=== PATIENT | male | born 1995 | race Hispanic/Latino ===

== ENCOUNTER 2021-05-28 01:58 | Emergency (ER) | payer MEDICARE ==
[2021-05-28 02:26] VITALS: BP 144/90
[2021-05-28] MEDS ORDERED: predniSONE 20 MG TAB PO ONE (05:03)
[2021-05-28] MEDS ORDERED: diphenhydrAMINE 25 MG CAP PO ONE (05:03)
--- NOTE | 2021-05-28 06:11 | Emergency Department Report ---
ED Allergic Reaction HPI - General Chief complaint: Allergic Reaction Stated complaint: Allergic Reaction Source: patient, EMS Mode of arrival: Stretcher Limitations: No Limitations - History of Present Illness Initial Comments: Patient is a 25-year-old male with no past medical history and who appears to be homeless presented to the ED with complaint of acute onset p ersistent itchy mild erythematous maculopapular rashes on the ankles bilaterally for the last 12 hours. Patient states that the itching has been constant and persistent although he admits that he has not taken any medication. Patient stated that he suspect that he may have been bitten by an unknown insect. Patient denies dizziness, syncope, chest pain, shortness of breath, swollen lips or tongue, dysphagia, dysphonia, nausea and vomiting or diarrhea, abdominal pain, cough or wheezing, traumatic injury, fever and chills. MD Complaint: allergic reaction, hives, other (itching rashes on ankles bilaterally) -: Sudden, hour(s) (8) Exposure: unknown Symptoms: rash, itching. denies: facial swelling, lip swelling, difficulty swallowing, difficulty breathing, orolingual swelling, hoarseness, syncopy, dizziness, nausea, vomiting, other Severity: mild Treatment Prior to Arrival: none Previous Allergy History: none - Related Data Allergies Allergy/AdvReac Type Severity Reaction Status Date / Time No Known Allergies Allergy Unverified 05/28/21 02:25 ED Review of Systems ROS: Stated complaint: Allergic Reaction Other details as noted in HPI Constitutional: denies: chills, fever Eyes: denies: eye pain, eye discharge, vision change ENT: denies: ear pain, throat pain Respiratory: denies: cough, shortness of breath, wheezing Cardiovascular: denies: chest pain, palpitations Endocrine: no symptoms reported Gastrointestinal: denies: abdominal pain, nausea, vomiting, diarrhea Genitourinary: denies: urgency, dysuria Musculoskeletal: denies: back pain, joint swelling, arthralgia Skin: rash (itchy erythematous maculopapular rash on bilateral ankles), change in color, pruritus. denies: lesions Neurological: denies: headache, weakness, paresthesias Psychiatric: denies: anxiety, depression Hematological/Lymphatic: denies: easy bleeding, easy bruising ED Past Medical Hx - Past Medical History Previous Medical History?: No - Surgical History Past Surgical History?: No - Social History Smoking Status: Current Every Day Smoker Substance Use Type: Marijuana ED Physical Exam - General Limitations: No Limitations General appearance: alert, in no apparent distress - Head Head exam: Present: atraumatic, normocephalic, normal inspection - Eye Eye exam: Present: normal appearance, PERRL, EOMI Pupils: Present: normal accommodation - ENT ENT exam: Present: normal exam, normal orophraynx, mucous membranes moist, TM's normal bilaterally, normal external ear exam - Neck Neck exam: Present: normal inspection, full ROM - Respiratory Respiratory exam: Present: normal lung sounds bilaterally. Absent: respiratory distress, wheezes, rales, rhonchi, chest wall tenderness, accessory muscle use, prolonged expiratory, other - Cardiovascular Cardiovascular Exam: Present: regular rate, normal rhythm, normal heart sounds. Absent: systolic murmur, diastolic murmur, rubs, gallop - GI/Abdominal GI/Abdominal exam: Present: soft, normal bowel sounds. Absent: distended, tenderness, guarding, rebound, hyperactive bowel sounds, hypoactive bowel sounds, organomegaly, mass, bruit - Extremities Exam Extremities exam: Present: normal inspection, full ROM, normal capillary refill - Back Exam Back exam: Present: normal inspection, full ROM. Absent: tenderness, CVA tenderness (R), CVA tenderness (L), muscle spasm, paraspinal tenderness, vertebral tenderness - Neurological Exam Neurological exam: Present: alert, oriented X3, CN II-XII intact, normal gait, reflexes normal - Psychiatric Psychiatric exam: Present: normal affect, normal mood, anxious - Skin Skin exam: Present: warm, dry, intact, rash (itchy erythematous maculopapular rashes on bilateral ankles), erythema, urticaria ED Course Vital Signs 05/28/21 02:16 Temperature 98 F Pulse Rate 100 H Blood Pressure 144/90 ED Medical Decision Making - Medical Decision Making This is a 25-year-old male with no past medical history and who appears to be homeless presented to the ED with complaint of acute onset persistent itchy mild erythematous maculopapular rashes on the ankles bilaterally for the last 12 hours. Patient states that the itching has been constant and persistent although he admits that he has not taken any medication. Patient stated that he suspect that he may have been bitten by an unknown insect. In the ED, patient is alert and oriented x3 and is not in distress. Patient was treated for acute allergic reaction with Benadryl and prednisone. Patient asked for food while waiting to be treated. Patient however eloped from the ED after getting food and medications. Patient declined to sign any paperwork for discharge from the ED. - Differential Diagnosis Allergic reaction; urticaria; irritant dermatitis; cellulitis Critical care attestation.: If time is entered above; I have spent that time in minutes in the direct care of this critically ill patient, excluding procedure time. ED Disposition Clinical Impression: Itching with irritation, Acute urticaria Acute allergic reaction Qualifiers: Encounter type: initial encounter Qualified Code(s): T78.40XA - Allergy, unspecified, initial encounter Disposition: 07 LEFT AGAINST MEDICAL ADVICE Is pt being admited?: No Does the pt Need Aspirin: No Condition: Undetermined Instructions: Allergies, Adult, [id number], Hives, [id number], Rash, Adult, [id number] Time of Disposition: 05:30 Print Language: NIGERIAN
== END 2021-05-28 06:00 | disposition left against medical advice (07) ==
LOC: ED 01:58
DX: L29.9 Pruritus, unspecified (principal); L50.9 Urticaria, unspecified; T78.40XA Allergy, unspecified, initial encounter; F17.200 Nicotine dependence, unspecified, uncomplicated; F12.90 Cannabis use, unspecified, uncomplicated; X58.XXXA Exposure to other specified factors, initial encounter
CPT/HCPCS: 99283; J7512

== ENCOUNTER 2021-07-10 14:05 | Emergency (ER) | payer MEDICARE ==
[2021-07-10 17:16] VITALS: BP 169/91
== END 2021-07-11 02:06 | disposition left against medical advice (07) ==
LOC: ED 14:05
DX: Z76.0 Encounter for issue of repeat prescription (principal); Z53.21 Procedure and treatment not carried out due to patient leaving prior to being seen by health care provider

== ENCOUNTER 2021-07-22 02:17 | Emergency (ER) | payer MEDICARE ==
[2021-07-22 02:57] VITALS: BP 145/86
[2021-07-22] MEDS ORDERED: IBUPROFEN 600 MG TAB PO ONE (03:14)
[2021-07-22] MEDS ORDERED: predniSONE 50 MG TAB PO ONE (03:14)
--- NOTE | 2021-07-22 03:20 | Emergency Department Report ---
ED Extremity Problem HPI - General Chief complaint: Extremity Injury, Lower Stated complaint: BILATERAL FOOT PAIN Source: patient Mode of arrival: Ambulatory Limitations: No Limitations - History of Present Illness Initial comments: Patient is a 25-year-old male with past medical history of ADHD, anxiety and depression who presents to the ED with complaint of acute onset persistent nontraumatic bilateral plantar foot pain for the last 2 days. Patient states that he has been walking all over the place as he has no place to go and is homeless and not the shoes he is wearing have hardly any questions. Patient states that the pain is worse with any ambulation or any weightbearing on his plantar feet. Patient denies fall, traumatic injury, fever, chills, nausea and vomiting, heavy lifting, chest pain or shortness of breath. MD Complaint: extremity pain (Bilateral plantar foot pain) -: Sudden, days(s) (2) Location: bilateral lower extremity (Bilateral plantar feet) History of Same: Yes -: Yes arthralgia Radiation: none Severity scale (0 -10): 7 Quality: aching, sharp Consistency: constant Improves with: nothing Worsens with: weight bearing, walking, exertion, palpation Associated Symptoms: denies other symptoms, arthralgias. denies: chest pain, shortness of breath, fever, myalgias, rash - Related Data Previous Rx's Medication Instructions Recorded Last Taken Type Naproxen 500 mg PO Q12H PRN #20 tab 07/22/21 Unknown Rx predniSONE [Deltasone] 40 mg PO QDAY #10 tab 07/22/21 Unknown Rx Allergies Allergy/AdvReac Type Severity Reaction Status Date / Time haloperidol [From Haldol] Allergy Unknown Verified 07/22/21 02:58 quetiapine [From Seroquel] Allergy Unknown Verified 07/22/21 02:58 ED Review of Systems ROS: Stated complaint: BILATERAL FOOT PAIN Other details as noted in HPI Constitutional: denies: chills, fever Eyes: denies: eye pain, eye discharge, vision change ENT: denies: ear pain, throat pain Respiratory: denies: cough, shortness of breath, wheezing Cardiovascular: denies: chest pain, palpitations Endocrine: no symptoms reported Gastrointestinal: denies: abdominal pain, nausea, diarrhea Genitourinary: denies: urgency, dysuria Musculoskeletal: arthralgia (Bilateral plantar foot pain). denies: back pain, joint swelling Skin: denies: rash, lesions Neurological: denies: headache, weakness, paresthesias Psychiatric: denies: anxiety, depression Hematological/Lymphatic: denies: easy bleeding, easy bruising ED Past Medical Hx - Past Medical History Previous Medical History?: Yes Hx Psychiatric Treatment: Yes (ADHD, Depression) - Surgical History Past Surgical History?: No - Social History Smoking Status: Current Every Day Smoker Substance Use Type: Marijuana - Medications Home Medications: Home Medications Medication Instructions Recorded Confirmed Last Taken Type Naproxen 500 mg PO Q12H PRN #20 tab 07/22/21 Unknown Rx predniSONE [Deltasone] 40 mg PO QDAY #10 tab 07/22/21 Unknown Rx ED Physical Exam - General Limitations: No Limitations General appearance: alert, in no apparent distress - Head Head exam: Present: atraumatic, normocephalic, normal inspection - Eye Eye exam: Present: normal appearance, PERRL, EOMI - ENT ENT exam: Present: normal exam, normal orophraynx, mucous membranes moist, TM's normal bilaterally, normal external ear exam - Neck Neck exam: Present: normal inspection, full ROM - Respiratory Respiratory exam: Present: normal lung sounds bilaterally. Absent: respiratory distress, wheezes, rales, rhonchi, stridor, chest wall tenderness, accessory muscle use, prolonged expiratory - Cardiovascular Cardiovascular Exam: Present: regular rate, normal rhythm, normal heart sounds. Absent: systolic murmur, diastolic murmur, rubs, gallop - GI/Abdominal GI/Abdominal exam: Present: soft, normal bowel sounds. Absent: distended, tenderness, guarding, rebound, hyperactive bowel sounds, hypoactive bowel sounds, organomegaly, mass - Extremities Exam Extremities exam: Present: normal inspection, full ROM, tenderness (Palpable reproducible bilateral plantar foot tenderness), normal capillary refill. Absent: pedal edema, joint swelling, calf tenderness - Back Exam Back exam: Present: normal inspection, full ROM. Absent: tenderness, CVA tenderness (R), CVA tenderness (L), muscle spasm, paraspinal tenderness, vertebral tenderness - Neurological Exam Neurological exam: Present: alert, oriented X3, CN II-XII intact, normal gait, reflexes normal - Psychiatric Psychiatric exam: Present: normal affect, normal mood - Skin Skin exam: Present: warm, dry, intact, normal color. Absent: rash ED Course Vital Signs 07/22/21 02:33 Temperature 98 F Pulse Rate 86 Respiratory 18 Rate Blood Pressure 145/86 O2 Sat by Pulse 98 Oximetry ED Medical Decision Making - Medical Decision Making This is a 25-year-old male with past medical history of ADHD, anxiety and depression who presents to the ED with complaint of acute onset persistent nontraumatic bilateral plantar foot pain for the last 2 days. Patient states that he has been walking all over the place as he has no place to go and is home less and not the shoes he is wearing have hardly any questions. Patient states that the pain is worse with any ambulation or any weightbearing on his plantar feet. In the ED, patient is alert and oriented x3 and is not in any distress. Patient was treated for pain in the ED and discharged home on pain medications based on physical exam findings of suspected plantar fasciitis. Patient was advised to follow-up with his primary care physician in 7 to 10 days for reevaluation or return to the ED immediately if symptoms get worse. - Differential Diagnosis Plantar fasciitis; muscle strain; tendinitis; muscle spasm Critical care attestation.: If time is entered above; I have spent that time in minutes in the direct care of this critically ill patient, excluding procedure time. ED Disposition Clinical Impression: Bilateral plantar fasciitis Muscle strain of foot Qualifiers: Encounter type: initial encounter Laterality: unspecified laterality Qualified Code(s): S96.919A - Strain of unspecified muscle and tendon at ankle and foot level, unspecified foot, initial encounter Disposition: HOME / SELF CARE / HOMELESS Is pt being admited?: No Does the pt Need Aspirin: No Condition: Stable Instructions: Muscle Strain, [id number], Plantar Fasciitis Additional Instructions: Your symptoms are likely due to muscle strain or inflammation of the muscles of your feet due to continuous walking on it poorly cushioned shoes. Therefore take medication as needed for pain with food, follow-up with your primary care physician in 5 to 7 days for reevaluation. Return to the ED immediately if symptoms get worse. Prescriptions: predniSONE [Deltasone] 40 mg PO QDAY #10 tab Naproxen 500 mg PO Q12H PRN #20 tab PRN Reason: Pain , Severe (7-10) Referrals: [facility] [Provider Group] - 3-5 Days Time of Disposition: 03:24 Print Language: MEXICAN
== END 2021-07-22 04:21 | disposition home or self-care (01) ==
LOC: ED 02:17
DX: S96.919A Strain of unspecified muscle and tendon at ankle and foot level, unspecified foot, initial encounter (principal); M72.2 Plantar fascial fibromatosis; F17.200 Nicotine dependence, unspecified, uncomplicated; Z88.8 Allergy status to other drugs, medicaments and biological substances; F12.90 Cannabis use, unspecified, uncomplicated; X58.XXXA Exposure to other specified factors, initial encounter; Y93.89 Activity, other specified; Y92.89 Other specified places as the place of occurrence of the external cause; Y99.8 Other external cause status
CPT/HCPCS: 99282; J7512

== ENCOUNTER 2021-08-06 22:37 | Emergency (ER) | payer MEDICARE ==
[2021-08-06 23:51] VITALS: BP 122/78
[2021-08-07 00:07] LABS: Amphetamine Screen,Urine PRESUMPTIVE NEGATIVE; Benzodiazepines Screen,Urine PRESUMPTIVE NEGATIVE; Cannabinoid Screen,Urine PRESUMPTIVE POSITIVE; Cocaine Screen,Urine PRESUMPTIVE NEGATIVE; Methadone Screen,Urine PRESUMPTIVE NEGATIVE; Opiate Screen,Urine PRESUMPTIVE NEGATIVE
[2021-08-07 00:20] LABS: Basophils # (Auto) 0.1 K/mm3 (0.0-0.1); Basophils % (Auto) 0.7 % (0.0-1.8); Eosinophils # (Auto) 0.4 K/mm3 (0.0-0.4); Hematocrit 40.2 % (35.5-45.6); Lymphocytes # (Auto) 3.1 K/mm3 (1.2-5.4); Lymphocytes % (Auto) 33.8 % (13.4-35.0); Mean Corpuscular HGB Conc 33 % (32-34); Mean Corpuscular Volume 90 fl (84-94); Monocytes # (Auto) 0.9 K/mm3 (0.0-0.8); Monocytes % (Auto) 10.2 % (0.0-7.3); Red Blood Count 4.47 M/mm3 (3.65-5.03); Red Cell Distribution Width 13.3 % (13.2-15.2)
[2021-08-07 00:23] LABS: Bilirubin,Urine NEG (Negative); Blood,Urine NEG (Negative); Color,Urine Yellow (Yellow); Mucus,Urine FEW /HPF; Protein,Urine <15 mg/dL mg/dL (Negative); RBC,Urine < 1.0 /HPF (0.0-6.0)
[2021-08-07 00:26] LABS: BUN/Creatinine Ratio 13; Blood Urea Nitrogen 10 mg/dL (9-20); Calcium 8.8 mg/dL (8.4-10.2); Hemolysis Index 33
[2021-08-07 00:27] LABS: WBC,Urine < 1.0 /HPF (0.0-6.0)
[2021-08-07 00:44] LABS: Platelet Count 305 K/mm3 (140-440)
--- NOTE | 2021-08-07 00:48 | Emergency Department Report ---
ED Medical Clearance HPI - General Chief complaint: Medical Clearance Stated complaint: MEDICAL CLEARANCE Time Seen by Provider: 08/06/21 23:20 Source: patient Mode of arrival: Ambulatory - History of Present Illness Initial comments: Stated that his hospice case manager sent here for medical clearance. Denies pain nor discomfort. Denies HI nor SI. pt counsellor askied him to come here for med clearance, no si or hi , pt homeless hasn;t taken his meds for months, pt has ADHD and autsm -: month(s) Alledged Intoxication: No Compliant with Home Medications: No Traumatic Symptoms: denies traumatic injury Associated Symptoms: denies: chest pain, shortness of breath, palpitations, diaphoresis, denies other symptoms, confusion Home medications: Previous Rx's Medication Instructions Recorded Last Taken Type Naproxen 500 mg PO Q12H PRN #20 tab 07/22/21 Unknown Rx predniSONE [Deltasone] 40 mg PO QDAY #10 tab 07/22/21 Unknown Rx Allergies/Adverse reactions: Allergies Allergy/AdvReac Type Severity Reaction Status Date / Time haloperidol [From Haldol] Allergy Unknown Verified 07/22/21 02:58 quetiapine [From Seroquel] Allergy Unknown Verified 07/22/21 02:58 ED Review of Systems ROS: Stated complaint: MEDICAL CLEARANCE Other details as noted in HPI Constitutional: denies: chills, fever Eyes: denies: eye pain, eye discharge, vision change ENT: denies: ear pain, throat pain Respiratory: denies: cough, shortness of breath, wheezing Cardiovascular: denies: chest pain, palpitations Endocrine: no symptoms reported Gastrointestinal: denies: abdominal pain, nausea, diarrhea Genitourinary: denies: urgency, dysuria Musculoskeletal: denies: back pain, joint swelling, arthralgia Skin: denies: rash, lesions Neurological: denies: headache, weakness, paresthesias Psychiatric: denies: anxiety, depression Hematological/Lymphatic: denies: easy bleeding, easy bruising ED Past Medical Hx - Past Medical History Previous Medical History?: Yes Hx Psychiatric Treatment: Yes (ADHD, Depression) - Surgical History Past Surgical History?: No - Social History Smoking Status: Never Smoker Substance Use Type: None - Medications Home Medications: Home Medications Medication Instructions Recorded Confirmed Last Taken Type Naproxen 500 mg PO Q12H PRN #20 tab 07/22/21 Unknown Rx predniSONE [Deltasone] 40 mg PO QDAY #10 tab 07/22/21 Unknown Rx ED Physical Exam - General Limitations: No Limitations General appearance: alert, in no apparent distress - Head Head exam: Present: atraumatic, normocephalic - Eye Eye exam: Present: normal appearance - ENT ENT exam: Present: mucous membranes moist - Neck Neck exam: Present: normal inspection - Respiratory Respiratory exam: Present: normal lung sounds bilaterally. Absent: respiratory distress - Cardiovascular Cardiovascular Exam: Present: regular rate, normal rhythm. Absent: systolic murmur, diastolic murmur, rubs, gallop - GI/Abdominal GI/Abdominal exam: Present: soft, normal bowel sounds - Rectal Rectal exam: Present: deferred - Extremities Exam Extremities exam: Present: normal inspection - Back Exam Back exam: Present: normal inspection - Neurological Exam Neurological exam: Present: alert, oriented X3 - Psychiatric Psychiatric exam: Present: normal affect, normal mood - Skin Skin exam: Present: warm, dry, intact, normal color. Absent: rash ED Course Vital Signs 08/06/21 23:43 Temperature 98 F Pulse Rate 78 Respiratory 18 Rate Blood Pressure 122/78 O2 Sat by Pulse 100 Oximetry ED Medical Decision Making - Lab Data Result diagrams: 08/06/21 23:57 08/06/21 23:57 - Medical Decision Making medically cleared for psych ED Disposition Clinical Impression: Medical clearance for psychiatric admission Disposition: 01 HOME / SELF CARE / HOMELESS Is pt being admited?: No Does the pt Need Aspirin: No Condition: Stable Instructions: Medical Screening Exam
== END 2021-08-07 16:12 | disposition home or self-care (01) ==
LOC: ED 22:37
DX: Z04.6 Encounter for general psychiatric examination, requested by authority (principal); Z59.00 Homelessness unspecified; F90.9 Attention-deficit hyperactivity disorder, unspecified type; F32.9 Major depressive disorder, single episode, unspecified; Z79.899 Other long term (current) drug therapy
CPT/HCPCS: 36415; 80048; 80307; 80320; 81001; 85025; 99283; G0480